=== PATIENT | male | born 1945 | race Caucasian/White ===

== ENCOUNTER → 2017-07-10 | Outpatient (CLI) | payer OTHER ==
[~2017-07-10] MED LIST: REGADENOSON 0.4 MG/5 ML SYR IVP ONE
--- NOTE | 2017-07-10 14:36 | PDCARST ---
CAR Stress Test Results Type of Stress Test: Lexiscan stress test Indication: h/o CAD, cp, SOB Description of Procedure: After informed consent was obtained, pt was established to ECG, blood pressure, HR and oximetry monitoring. STRESS EKG AND HEMODYNAMIC DATA. Resting heart rate: 63 BPM. Resting ECG: SR. Resting blood pressure: 138/80 mmHg. O2 saturation at rest: 92%. Peak heart rate: 73 BPM. Peak blood pressure: 142/82 mmHg. Arrhythmias: none. Symptoms: The patient experienced no typical symptoms of angina during stress or recovery. . Stress/Infusion ECG: No change in rhythm with no significant ST/T wave changes. Stress/infusion O2 saturation: 94% Impression: Uneventful Lexiscan infusion. Conclusion: Await nuclear images.
== END ==
LOC: FIMAGING 12:23
PROVIDERS: ATTEND Internal Medicine Interventional Cardiology
DX: R06.02 Shortness of breath (principal); R07.9 Chest pain, unspecified; R06.09 Other forms of dyspnea
CPT/HCPCS: 78452; 93017; A9500; J2785

== ENCOUNTER → 2018-07-03 | Outpatient (CLI) | payer OTHER | LOC: FIMAGING 14:06 | PROVIDERS: ATTEND Internal Medicine Interventional Cardiology | DX: I48.0 Paroxysmal atrial fibrillation (principal); I25.10 Atherosclerotic heart disease of native coronary artery without angina pectoris; I77.9 Disorder of arteries and arterioles, unspecified; R06.02 Shortness of breath; Z57.5 Occupational exposure to toxic agents in other industries ==

== ENCOUNTER → 2018-11-24 | Outpatient (CLI) | payer OTHER | LOC: FIMAGING 08:45 | PROVIDERS: ATTEND Internal Medicine Pulmonary Disease | DX: J98.6 Disorders of diaphragm (principal) ==